=== PATIENT | female | born 1960 | race African-American/Black ===

== ENCOUNTER 2019-11-08 09:15 | Emergency (ER) | payer MEDICAID ==
[~2019-11-08] VITALS: Ht 167.6 cm; Wt 67.0 kg
[2019-11-08 10:57] VITALS: BP 128/78
== END 2019-11-08 10:58 | disposition home or self-care (01) ==
LOC: ER 09:15
DX: J11.1 Influenza due to unidentified influenza virus with other respiratory manifestations (principal); Z20.828 Contact with and (suspected) exposure to other viral communicable diseases; E03.9 Hypothyroidism, unspecified; E04.9 Nontoxic goiter, unspecified; Z88.0 Allergy status to penicillin
CPT/HCPCS: 99283

== ENCOUNTER 2019-11-23 06:52 | Emergency (ER) | payer MEDICAID ==
[~2019-11-23] VITALS: Ht 167.6 cm; Wt 65.0 kg
[2019-11-23] MEDS ORDERED: SODIUM CHLORIDE 0.9% 1,000 ML IV ONE (07:13)
[2019-11-23 08:15] LABS: BASOPHILS % 1.2 % (0.0-2.0); HEMATOCRIT. 34.3 % (36.0-48.0); HEMOGLOBIN. 11.4 g/dL (12.0-16.0); LYMPHOCYTES % 33.7 % (20.0-50.0); MEAN CORPUSCULAR HEMOGLOBIN 30.7 pg (28.0-32.0); MEAN CORPUSCULAR VOLUME 92.3 fL (81.0-99.0); MEAN PLATELET VOLUME 7.4 fl (7.4-10.4); MONOCYTES % 9.3 % (2.0-8.0); NEUTROPHILS % 52.8 % (40.0-76.0); PLATELET 362 x1000/uL (130-400); RED BLOOD CELL COUNT 3.72 mill/uL (4.2-5.4); RED CELL DISTRIBUTION WIDTH 15.6 % (11.6-14.6)
[2019-11-23 08:22] LABS: CHLORIDE 110 mEq/L (98-107)
[2019-11-23 08:24] LABS: INR 1.3; PROTHROMBIN TIME 13.1 sec (9.6-11.0)
[2019-11-23] MEDS ORDERED: ACETAMINOPHEN 325MG TABLET PO ONE (10:30)
[2019-11-23] MEDS ORDERED: ONDANSETRON HCL 4MG/2ML INJ IV ONE (10:30)
[2019-11-23 10:43] LABS: CLARITY URINE CLEAR (CLEAR); COLOR URINE YELLOW (YELLOW); KETONES URINE NEGATIVE (NEGATIVE); LEUKOCYTE ESTERASE URINE NEGATIVE (NEGATIVE); NITRITE URINE NEGATIVE (NEGATIVE); OCCULT BLOOD URINE 2+ (NEGATIVE); PROTEIN URINE NEGATIVE (NEGATIVE); SPECIFIC GRAVITY URINE 1.021 (1.005-1.030)
[2019-11-23 11:40] VITALS: BP 138/76
== END 2019-11-23 11:40 | disposition home or self-care (01) ==
LOC: ER 06:52
DX: R11.10 Vomiting, unspecified (principal); Z20.828 Contact with and (suspected) exposure to other viral communicable diseases; Z88.0 Allergy status to penicillin
CPT/HCPCS: 36415; 71045; 80053; 81003; 83690; 85025; 85610; 87635; 93005; 96374; 99285; C9803; J2405; J7030